=== PATIENT | female | born 1990 ===

== ENCOUNTER 2018-03-27 16:58 | Emergency (ER) | payer OTHER ==
--- NOTE | 2018-03-27 18:13 | OBHP ---
Datetime: 03/27/2018 17:50 IP Adm Impression: , intrauterine IP Chief Complaint Other: nst Admit Comment, IP Provider: at 36.6 weeks here fir nst for iugr, no ctxs, vb, lof+fm obhx primi_ pmh de med pnv all nkda psh de soch de ndst 130 mod jarad ctg1 a/p at 36.6weks for nst plan dc home p hy cnt pnv f/u Pelvic Type - PN: Adequate Extremities - PN: Normal Abdomen - PN: Normal Back - PN: Normal Breast - PN: Normal Lungs - PN: Normal Heart - PN: Normal Thyroid - PN: Normal Neurologic - PN: Normal HEENT - PN: Normal General - PN: Normal FHR - Baseline A Provider: 140 Vital Signs Provider: Reviewed; Within Normal Limits NICHD Variability Prov Fetus A: Moderate 6-25bpm NICHD Accel Fetus A IP Provider: 10X10 FHR Category Provider Fetus A: Category I Genitourinary Exam: Normal DTRs - PN: Normal
[2018-03-27 18:59] LABS: SQUAMOUS EPITHIAL 3 /hpf (0-5); URINE BACTERIA MANY (<OCC); URINE BILIRUBIN NEGATIVE (NEGATIVE); URINE BLOOD NEGATIVE (NEGATIVE); URINE CLARITY Clear (Clear); URINE COLOR Yellow (YELLOW); URINE GLUCOSE (UA) NORMAL (Normal); URINE LEUKOCYTE ESTERASE 1+ Leu/uL (Negative); URINE PROTEIN NEGATIVE (NEGATIVE); URINE UROBILINOGEN NORMAL mg/dL (0.2-1.0)
[2018-03-27 23:03] VITALS: BP 116/72; PULSE 77; RESP 20; TEMP 98; O2SAT 99
== END 2018-03-27 19:02 | disposition home or self-care (01) ==
LOC: C.EROB 16:58
DX: Z36.89 Encounter for other specified antenatal screening (principal)